=== PATIENT | male | born 1975 | race Caucasian/White ===

== ENCOUNTER → 2017-08-02 | Outpatient (CLI) | payer MEDICARE, MEDICAID ==
--- NOTE | 2017-08-02 14:30 | RADIOLOGY REPORT (SQ) ---
EXAM DESCRIPTION: LUMBAR SPINE 2 VIEWS COMPLETED DATE/TIME: 08/02/2017 2:19 pm REASON FOR STUDY: LUMBAGO WITH SCIATICA, UNSPECIFIED SIDE M54.40 LUMBAGO WITH SCIATICA, UNSPECIFIED SIDE COMPARISON: None. NUMBER OF VIEWS: Two views. TECHNIQUE: AP and lateral radiographic images acquired of the lumbar spine. LIMITATIONS: None. FINDINGS: MINERALIZATION: Normal. SEGMENTATION: Normal. No transitional anatomy. ALIGNMENT: Normal. VERTEBRAE: Maintained height. No fracture or worrisome bone lesion. DISCS: No significant disc space reduction is seen. There is minimal anterior osteophytic lipping at multiple levels. POSTERIOR ELEMENTS: Pedicles and facets are intact. No pars defect or posterior arch defects. HARDWARE: None in the spine. PARASPINAL SOFT TISSUES: Normal. PELVIS: Intact as visualized. No fractures or worrisome bone lesions. SI joints intact. OTHER: No other significant finding. IMPRESSION: No significant vertebral compression or disc space reduction is seen. There is minimal anterior osteophytic lipping at multiple levels. TECHNICAL DOCUMENTATION: JOB ID: [id number] [employer]- All Rights Reserved Reading location - IP/workstation name: [email or web address]
== END ==
LOC: OD 13:59
PROVIDERS: ATTEND Physician Assistant Medical
DX: M54.40 Lumbago with sciatica, unspecified side (principal)
CPT/HCPCS: 72100

== ENCOUNTER 2019-09-09 13:47 | Emergency (ER) | payer MEDICARE, MEDICAID ==
--- NOTE | 2019-09-09 13:51 | ER Document Report ---
ED Medical Screen (RME) - General Chief Complaint: Facial Injury Stated Complaint: FALL/LEFT FOOT PAIN Time Seen by Provider: 09/09/19 13:50 Primary Care Provider: VIRGIE HERNANDEZ PA-C [Primary Care Provider] - Follow up as needed Mode of Arrival: Wheelchair Information source: Patient Notes: 44-year-old male presented to ED for a left foot injury. He states he was on the porch and fell off. He states he has cut his foot and the laceration is pumping as his heart pumps. He does have a grocery bag tied to his foot that is leaking blood. He is alert oriented respirations regular nonlabored speaking in full sentences. He states he has a history of blood pressure cholesterol but no cardiac history. I have greeted and performed a rapid initial assessment of this patient. A comprehensive ED assessment and evaluation of the patient, analysis of test results and completion of medical decision making process will be conducted by an additional ED providers. TRAVEL OUTSIDE OF THE [place] IN LAST 30 DAYS: No - Related Data Allergies/Adverse Reactions: No Known Allergies Allergy (Verified 04/11/15 12:17) Past Medical History - Past Medical History Cardiac Medical History: Reports: Hx Hypertension Musculoskeltal Medical History: Reports Hx Arthritis - Immunizations Immunizations up to date: Yes Hx Diphtheria, Pertussis, Tetanus Vaccination: No Doctor's Discharge - Discharge Referrals: VIRGIE HERNANDEZ PA-C [Primary Care Provider] - Follow up as needed
[2019-09-09] MEDS ORDERED: LIDOCAINE 1%/EPINEPHRINE INJ 20 ML VIAL INJ ONE (13:59)
--- NOTE | 2019-09-09 14:36 | RADIOLOGY REPORT (SQ) ---
EXAM DESCRIPTION: FOOT LEFT COMPLETE IMAGES COMPLETED DATE/TIME: 09/09/2019 2:14 pm REASON FOR STUDY: pain and injury COMPARISON: None. NUMBER OF VIEWS: Three views. TECHNIQUE: AP, lateral and oblique radiographic images acquired of the left foot. LIMITATIONS: None. FINDINGS: MINERALIZATION: Normal. BONES: No definite acute fracture dislocation. Midfoot osteophytosis. Plantar and superior calcanea l enthesophytes. JOINTS: No dislocation. Midfoot degenerative change as above. SOFT TISSUES: Soft tissue swelling about the foot OTHER: Obesity. IMPRESSION: No evidence of acute bony abnormality. TECHNICAL DOCUMENTATION: JOB ID: [id number] [employer]- All Rights Reserved Reading location - IP/workstation name: [email or web address]
--- NOTE | 2019-09-09 14:58 | ER Document Report ---
ED General - General Chief Complaint: Laceration Stated Complaint: FALL/LEFT FOOT PAIN Time Seen by Provider: 09/09/19 13:50 Primary Care Provider: VIRGIE HERNANDEZ PA-C [NO LOCAL MD] - Follow up as needed Mode of Arrival: Wheelchair Information source: Patient TRAVEL OUTSIDE OF THE [place] IN LAST 30 DAYS: No - HPI Notes: Patient presents with left foot pain. Patient states that he slipped on a wet wooden porch and suffered a laceration to the left foot. He states he is unsure exactly what the left foot was cut on. He states he does not have any known foreign body that he knows of. He states it has been bleeding continuously therefore he tried to put a pressure dressing on it. He states the left foot is tender mainly on the medial aspect. It is worse with movement and better with rest. It does radiate up his left leg. It is constant. Is moderate in intensity and a burning sensation. He denies any other injuries. - Related Data Allergies/Adverse Reactions: No Known Allergies Allergy (Verified 04/11/15 12:17) Past Medical History - General Information source: Patient - Social History Smoking Status: Former Smoker Frequency of alcohol use: None Drug Abuse: None Family History: Reviewed & Not Pertinent Patient has suicidal ideation: No Patient has homicidal ideation: No - Past Medical History Cardiac Medical History: Reports: Hx Hypertension Musculoskeletal Medical History: Reports Hx Arthritis - Immunizations Immunizations up to date: Yes Hx Diphtheria, Pertussis, Tetanus Vaccination: No Review of Systems - Review of Systems Constitutional: denies: Chills, Fever Cardiovascular: denies: Chest pain, Palpitations, Heart racing Respiratory: denies: Cough, Hurts to breathe -: Yes All other systems reviewed and negative Physical Exam - Vital signs Vitals: Temp Pulse Resp BP Pulse Ox 98.2 F 119 H 20 155/99 H 97 09/09/19 13:50 09/09/19 13:50 09/09/19 13:50 09/09/19 13:50 09/09/19 13:50 Interpretation: Hypertensive, Tachycardic - General General appearance: Appears well, Alert - HEENT Head: Normocephalic, Atraumatic Eyes: Normal Pupils: PERRL - Respiratory Respiratory status: No respiratory distress Chest status: Nontender Breath sounds: Normal Chest palpation: Normal - Cardiovascular Rhythm: Regular Heart sounds: Normal auscultation Murmur: No - Abdominal Inspection: Normal Distension: No distension Bowel sounds: Normal Tenderness: Nontender Organomegaly: No organomegaly - Back Back: Normal, Nontender - Extremities General upper extremity: Normal inspection, Nontender, Normal color, Normal ROM, Normal temperature General lower extremity: Normal color, Normal temperature, Other - Left foot has a approximate 6 cm laceration to the medial aspect. There is active bleeding from what appears to be a small arterial. No evidence of foreign body. The left foot is tender surrounding the wound.. No: Miryam's sign - Neurological Neuro grossly intact: Yes Cognition: Normal Orientation: AAOx4 [place] Coma Scale Eye Opening: Spontaneous Anthony Coma Scale Verbal: Oriented Anthony Coma Scale Motor: Obeys Commands [place] Coma Scale Total: 15 Speech: Normal Motor strength normal: LUE, RUE, LLE, RLE Sensory: Normal - Psychological Associated symptoms: Normal affect, Normal mood - Skin Skin Temperature: Warm Skin Moisture: Dry Skin Color: Normal Course - Vital Signs Vital signs: Temp Pulse Resp BP Pulse Ox 98.2 F 119 H 20 155/99 H 97 09/09/19 13:50 09/09/19 13:50 09/09/19 13:50 09/09/19 13:50 09/09/19 13:50 - Diagnostic Test Radiology reviewed: Image reviewed, Reports reviewed Procedures - Immobilization Left Foot Time completed: 14:59 Pre-Proc Neuro Vasc Exam: Normal Immobilizer type: Post-op shoe Performed by: PCT Post-Proc Neuro Vasc Exam: Normal Alignment checked and good: Yes - Laceration/Wound Repair Left Medial Foot Time completed: 14:57 Wound length (cm): 6 Wound's Depth, Shape: Irregular Laceration pre-procedure: Sterile PPE donned, Sterile drapes applied Anesthetic type: 1% Lidocaine w/epi Wound explored: Contaminated - mildly Wound Debrided: Moderate Wound Repaired With: Sutures Suture Size/Type: 3:0, Ethilon Number of Sutures: 7 Layer Closure?: No Post-procedure wound care: Sterile dressing applied, Splint applied - shoe Post-procedure NV exam normal: No Complications: No Discharge - Discharge Clinical Impression: Laceration of left foot excluding toes without complication Qualifiers: Encounter type: initial encounter Qualified Code(s): S91.312A - Laceration without foreign body, left foot, initial encounter Condition: Stable Disposition: HOME, SELF-CARE Instructions: Antibiotic Ointment Protection ([facility]), Laceration Care ([facility]), Oral Narcotic Medication ([facility]), Prophylactic Antibiotic ([facility]), Tetanus Immunization Given ([facility]) Additional Instructions: Please do not get the wound wet for 24 hours. Please do not soak the wound under water until the sutures are removed. Please have the wound evaluated in approximately 12 days for possible suture removal. If you have any signs of increasing redness, increasing pain, discharge from the wound or any concerns please return for evaluation. Prescriptions: Cephalexin Monohydrate [Keflex 500 mg Capsule] 500 mg PO Q6H 5 Days capsule Hydrocodone/Acetaminophen [Melvin 5-325 mg Tablet] 1 tab PO Q6 PRN 3 Days #12 tablet PRN Reason: Referrals: VIRGIE HERNANDEZ PA-C [NO LOCAL MD] - Follow up as needed
[2019-09-09 15:23] VITALS: BP 153/91
== END 2019-09-09 15:23 | disposition home or self-care (01) ==
LOC: ER 13:47
DX: S91.312A Laceration without foreign body, left foot, initial encounter (principal); W17.89XA Other fall from one level to another, initial encounter; Z87.891 Personal history of nicotine dependence; I10 Essential (primary) hypertension
CPT/HCPCS: 99282; 73630; 12002; J3490